=== PATIENT | male | born 1930 | race Caucasian/White ===

== ENCOUNTER 2016-08-02 10:59 | Outpatient (CLI) | payer OTHER ==
[~2016-08-02 10:59] MED LIST: AMLODIPINE BESYL5 MG PO; ASPIRIN EC325 MG PO; HYDROCHLOROTHIA25 MG PO; LISINOPRIL10 MG PO; PLAVIX75 MG PO; TOPROL XL50 MG PO
--- NOTE | 2016-08-02 11:52 | DIAGNOSTIC IMAGING REPORT ---
PROCEDURE: CT HEAD WITHOUT CONTRAST INDICATION: CVA;MEMORY LOSS TECHNIQUE: Axial CT images were acquired through the head. Coronal and sagittal reformations were created. COMPARISON: Compared to MRI brain on 06/17/2014 (acute left occipital infarct) and CT of the brain 09/01/2015 (acute right occipital infarct) FINDINGS: There are old bilateral occipital lobe infarcts. Findings superimposed on moderate small-vessel ischemic disease involving the periventricular white matter. There is no evidence of mass effect or hemorrhage. Is note of hydrocephalus. Sinuses and mastoids are normal. IMPRESSION: 1. 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 2. 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
[2016-09-09] MEDS ORDERED: ATORVASTATIN CA40 MG PO (14:20)
[2016-09-09] MEDS ORDERED: TOPROL XL50 MG PO (14:21)
[2016-09-09] MEDS ORDERED: ZINC SULFATE220 MG PO (14:21)
== END 2016-08-02 23:00 ==
LOC: CT SRH 10:59
DX: Z86.73 Personal history of transient ischemic attack (TIA), and cerebral infarction without residual deficits (principal); I87.9 Disorder of vein, unspecified